=== PATIENT | female | born 1960 | race Hispanic/Latino ===

== ENCOUNTER 2017-04-08 08:05 | Day surgery (SDC) | payer MEDICARE ==
[2017-04-08] MEDS ORDERED: NACL 0.9% 500 ML 500 ML IV SCH (09:00)
[2017-04-08 09:01] LABS: Basophils % (Auto) 0.8 % (0.0-1.8); Eosinophils % (Auto) 0.5 % (0.0-4.3); Hematocrit 43.1 % (30.3-42.9); Hemoglobin 14.8 gm/dl (10.1-14.3); Mean Corpuscular HGB Conc 34 % (30-34); Mean Corpuscular Hemoglobin 31 pg (28-32); Mean Corpuscular Volume 90 fl (79-97); Red Blood Count 4.78 M/mm3 (3.65-5.03); Red Cell Distribution Width 13.1 % (13.2-15.2); White Blood Count 7.8 K/mm3 (4.5-11.0)
[2017-04-08 09:03] LABS: Platelet Count 230 K/mm3 (140-440)
[2017-04-08 09:05] LABS: INR 0.93 (0.87-1.13)
[2017-04-08 09:09] LABS: Blood Urea Nitrogen 16 mg/dL (7-17); Carbon Dioxide 25 mmol/L (22-30); Glucose 186 mg/dL (65-100)
[2017-04-08 09:10] LABS: Anion Gap 20 mmol/L; Chloride 99.3 mmol/L (98-107); Potassium 4.2 mmol/L (3.6-5.0); Sodium 140 mmol/L (137-145)
[2017-04-08] MEDS ORDERED: ECOTRIN PO ONE (09:30)
[2017-04-08] MEDS ORDERED: TYLENOL ONE (11:24)
[2017-04-08] MEDS ORDERED: TYLENOL PO PRN (11:30)
[2017-04-08] MEDS ORDERED: NITROGLYCERIN SYRINGE 0 ML ONE (13:18)
[2017-04-08] MEDS ORDERED: HEPARIN 10,000 UNITS/10 ML ONE (13:18)
[2017-04-08] MEDS ORDERED: XYLOCAINE 2% INFILTRATI ONE (13:18)
[2017-04-08] MEDS ORDERED: HEPARIN/NS 5000 UNIT/500ML(CATH LAB) 1,000 ML IR ONE (13:18)
[2017-04-08] MEDS ORDERED: CALAN ONE (13:18)
[2017-04-08] MEDS ORDERED: NACL 0.9% 0 ML ONE (13:32)
[2017-04-08] MEDS ORDERED: ANGIOMAX IV ONE (13:32)
[2017-04-08] MEDS: SUBLIMAZE ONE ×2 (14:22→14:25)
[2017-04-08] MEDS: VERSED ONE ×2 (14:23→14:26)
[2017-04-08] MEDS ORDERED: NACL 0.9% 1000 ML 1,000 ML IV SCH (15:00)
[2017-04-08] MEDS ORDERED: ULTRAM PO ONE (15:36)
--- NOTE | 2017-04-08 15:58 | Discharge Summary ---
Short Stay Discharge Plan Activity: advance as tolerated Diet: low fat, low cholesterol, low salt Special Instructions: other (Post Cardiac cath instructions) Follow up with: JOSE DE JESUS MONTOYA MD [Primary Care Provider] - 7 Days Forms: [facility] PCI D/C Instructions
[2017-04-08 18:28] VITALS: BP 129/69
--- NOTE | 2017-04-08 23:22 | Cardiac Catherization Report ---
REASON FOR PROCEDURE: Chest pain. DESCRIPTION OF PROCEDURE: The patient was prepped and draped in a sterile fashion after informed consent. The right femoral artery was entered using the Seldinger technique followed by placement of a 6-Yi sheath. Selective left and right coronary angiography was performed using #4 left and right Hansel catheters. A pigtail catheter was used for left ventricle angiography. The catheters were removed, sheath removed, and hemostasis achieved using an Angio-Seal device. The patient was returned to the postprocedure unit in stable condition. There were no complications. FINDINGS: HEMODYNAMICS: Left ventricle end diastolic pressure was less than 20, following coronary angiography. Ascending aortic pressure was 140/80. There was no significant pressure gradient on pullback across the aortic valve. CORONARY ANGIOGRAPHY: The left main coronary artery was angiographically normal. There were mild irregularities of the mid left anterior descending artery, otherwise this vessel and its diagonal branches were angiographically normal. The circumflex artery and its obtuse marginal branches were angiographically normal. The right coronary artery was dominant and angiographically normal. Left ventricular systolic function was normal, ejection fraction 60%. CONCLUSION: 1. No significant coronary artery disease. 2. Normal left ventricular systolic function, ejection fraction 60%. RECOMMENDATION: Risk factor modification and medical therapy. JOB# [id number] CA/NTS
== END 2017-04-08 19:00 | disposition home or self-care (01) ==
LOC: CATHLABREC 08:05
PROVIDERS: ATTEND Internal Medicine Cardiovascular Disease
DX: R07.9 Chest pain, unspecified (principal); F41.9 Anxiety disorder, unspecified; F32.9 Major depressive disorder, single episode, unspecified; E11.9 Type 2 diabetes mellitus without complications; Z86.19 Personal history of other infectious and parasitic diseases; Z79.899 Other long term (current) drug therapy; Z79.84 Long term (current) use of oral hypoglycemic drugs; Z98.890 Other specified postprocedural states; Z83.3 Family history of diabetes mellitus; Z82.49 Family history of ischemic heart disease and other diseases of the circulatory system
CPT/HCPCS: 36415; 80048; 82962; 85025; 85610; 85730; 93005; 93010; 93458; C1760; J1644; J2250; J3010; J7040; J0583; Q9967